=== PATIENT | female | born 1965 | race Caucasian/White ===

== ENCOUNTER 2018-04-04 19:13 | Observation (INO) ==
[2018-04-04] MEDS ORDERED: *HR* FentaNYL (PF) 100 MCG/2 ML VIAL IVP ONE ×2 (19:26→21:28)
[2018-04-04] MEDS ORDERED: *HR* Promethazine 25 MG/ML VIAL IVP ONE ×2 (19:26→21:28)
[2018-04-04] MEDS ORDERED: Isovue-370 500 ML INFUS..BTL IV ONE (19:29)
[2018-04-04] MEDS ORDERED: 0.9 % Sodium Chloride 1,000 ML IVC ONE (19:30)
[2018-04-04] MEDS ORDERED: Pantoprazole 80 MG in 0.9 % Sodium Chloride 50 ML IVPB ONE (19:35)
--- NOTE | 2018-04-04 19:35 | Emergency Department Note ---
Disposition Clinical Impression: Intractable nausea and vomiting Qualifiers: Vomiting type: unspecified Qualified Code(s): R11.2 - Nausea with vomiting, unspecified Gastritis Qualifiers: Gastritis type: unspecified gastritis Chronicity: acute Gastritis bleeding: without bleeding Qualified Code(s): K29.00 - Acute gastritis without bleeding Disposition: Admitted As Inpatient Condition: Fair Referrals: Ronel English CNP [Primary Care Provider] - Forms: ED Satisfaction Letter Time of Disposition: 23:00 Nausea/Vomiting/Diarrhea HPI - General Chief complaint: ED Nausea/Vomiting/Diarrhea Stated complaint: cant keep anything down after bowel resection Time Seen by Provider: 04/04/18 19:22 Source: patient, EMS Mode of arrival: EMS Limitations: no limitations Nursing Notes Reviewed: Yes Vital Signs Reviewed: Yes - History of Present Illness Pt Subjective Complaint: nausea, vomiting Onset (ago): hour(s) (Started this morning) Associated Abdominal Pain: Yes (Came on after the vomiting) If pain, Location of pain: other (Midline) Severity: severe Quality: cramping, stabbing Consistency: constant (Waxing and waning) Improves with: nothing Worsens with: eating Context: recent surgery/procedure (Patient had a hemicolectomy performed on March 17 due to diverticular disease. So we are postop day 18. She was seen here a week ago for the same thing. Labs were okay. Noncontrast CT was negative. She was transferred back to the [facility] where she had her surgery. Patient states that she was there for couple days and they did all kinds of testing and she ended up having a bowel movement and they sent her home. They did not think she had a bowel obstruction.) Associated symptoms: Reports: denies other symptoms - Related Data Home Medications Medication Instructions Recorded Confirmed Acetaminophen [Non-Aspirin] 325 mg PO Q4H PRN 04/04/18 04/04/18 Previous Rx's Medication Instructions Recorded Ondansetron ODT [Zofran ODT] 4 mg SL Q6HR PRN #8 tab.rapdis 03/28/18 Promethazine [Phenergan] 25 mg PO Q6HR PRN #16 tablet 03/28/18 Allergies Allergy/AdvReac Type Severity Reaction Status Date / Time sulfamethoxazole Allergy Hives Verified 10/05/17 10:59 [From Bactrim] trimethoprim [From Bactrim] Allergy Hives Verified 10/05/17 10:59 acetaminophen [From Percocet] AdvReac Gastrointestinal Verified 10/05/17 10:59 Upset hydrocodone [From Vicodin] AdvReac Gastrointestinal Verified 10/05/17 10:59 Upset Hydromorphone [From Dilaudid] AdvReac Gastrointestinal Verified 03/28/18 11:16 Upset Oxycodone [From Percocet] AdvReac Gastrointestinal Verified 10/05/17 10:59 Upset All systems ED: reviewed and negative except as stated. Constitutional: Reports: chills. Denies: fever ENT ED: Denies: ear pain, throat pain, congestion Cardiovascular: Denies: chest pain, palpitations Respiratory: Denies: cough, dyspnea Gastrointestinal: Reports: abdominal pain, nausea, vomiting. Denies: diarrhea, constipation Genitourinary: Denies: urgency, dysuria, frequency Integumentary: Denies: rash Past Medical History - Past Medical History Attestation: Yes The following information was validated with the patient. Source: patient, old records reviewed, nursing notes reviewed Medical history: Reports: hypertension, other Surgical history: Reports: no surgical history Psychiatric history: Reports: anxiety, depression [employer] history: Reports: bilateral tubal ligation - Social History Smoking Status: Current every day smoker Smokeless Tobacco Status: No Alcohol use: Reports: occasionally Drug use: Reports: marijuana Physical Exam - General General appearance: alert, other (Retching on arrival) - Head Head exam: atraumatic, normocephalic - Eye Eye exam: Present: normal appearance, PERRL, EOMI. Absent: scleral icterus, conjunctival injection - ENT ENT exam: normal oropharynx, mucous membranes dry, normal external ear exam - Neck Neck exam: Present: normal inspection, full ROM - Chest Chest inspection: Present: normal inspection, symmetric chest wall rise. Absent : tenderness - Respiratory Respiratory exam: Present: normal lung sounds bilaterally. Absent: respiratory distress, wheezes - Cardiovascular Cardiovascular exam: Present: regular rate, normal rhythm, normal heart sounds - Abdominal Exam Abdominal exam: Present: soft, tenderness (Located at each end of her midline incision. No incisional hernias identified.), normal bowel sounds. Absent: distention - Extremities Exam Extremities exam: Present: normal inspection. Absent: pedal edema - Neurological Exam Neurological exam: Present: alert, oriented X3 - Psychiatric Psychiatric exam: Present: normal affect, normal mood - Skin Skin exam: Present: warm, dry. Absent: rash Course Course Narrative: Patient presents with complaint of nausea and vomiting started this morning. She was not having any abdominal pain until after she started vomiting. She is here week ago for the same thing and workup was negative and symptoms resolved after she was transferred to clinic clinic. Physical exam does not seem consistent with bowel obstruction. I am suspicious this could be postoperative gastritis issue. However obstruction is the main concern as well as other postoperative complication like abscess or other infection. I will do a lab workup on the patient. I ordered a CT scan but this time we will do IV and oral contrast to get a better image. Patient was given pain medications and anti-emetics. I will also give her Protonix IV and IV fluids. Disposition will be based on diagnostic results and reevaluation. - Reevaluation(s) Reevaluation #1: After medications, the patient's left and she did not have any dry heaving or vomiting at all. Labs of come back and they are normal. Despite days of vomiting she is just got normal labs. We had to wake her up and keep encouraging her to drink the oral contrast. In the end she refused to drink it because it is making her nauseous. We talked about NG tube but she refuses NG tube as well. We explained to her that the study will not be as sensitive without appropriate contrast and after all that what her doctor sent her in to get. Nonetheless she refused so we are going get the study without oral contrast because we cannot force the patient to take the contrast or the NG tube. After all that she started dramatically dry heaving again. Nothing came up. I gave her more pain medicine and more anti-medics. They are to take her over to CT for the study with IV contrast only. Time: 21:30 Reevaluation #2: CAT scan shows no evidence of obstruction and no other acute intra-abdominal pathology. There is no abdominal wall pathology. No lower long issues. Coupling that with labs that are okay and the urinalysis that shows no signs of infection I think this really is a postoperative gastritis possibly curling ulcer issue. Talking with the patient and family the bedside they do not feel like they are going to do well if they go home. Therefore we will go ahead and admit the patient for intractable vomiting. I had to repeat medicate her a couple times in the emergency department so far so I think is reasonable for them to be admitted with IV medications and IV hydration. Time: 22:59 - Consultations Consultation #1: Dr. Cleary, hospitalist - I discussed the case with the hospitalist. He is accepted the patient for admission for intractable vomiting. Time: 22:59 Vital Signs Temperature 98.6 F 04/04/18 19:23 Pulse Rate 84 04/04/18 19:23 Respiratory Rate 20 04/04/18 19:23 Blood Pressure 151/96 04/04/18 19:23 O2 Sat by Pulse Oximetry 100 04/04/18 19:23 Temperature 98.6 F 04/04/18 19:23 Pulse Rate 77 04/04/18 21:48 Respiratory Rate 14 04/04/18 21:48 Blood Pressure 164/67 04/04/18 21:48 O2 Sat by Pulse Oximetry 98 04/04/18 21:48 Oxygen Delivery Oxygen Delivery Room Air Nausea/Vomiting/Diarrhea - Medical Records Medical records reviewed: Yes I reviewed the patient's medical records. - Lab Data Lab results reviewed: Yes I reviewed the patient's lab results. Result diagrams: 04/04/18 19:55 04/04/18 19:55 Lab Results 04/04/18 04/04/18 04/04/18 Range/Units 19:55 19:55 19:55 WBC 7.7 (4.3-11.1) K/mcL RBC 4.35 (3.82-4.97) M/mcL Hgb 13.1 (11.5-15.4) g/dL Hct 39.5 (35.3-44.9) % MCV 90.8 (83.0-100.0) fL MCH 30.1 (28.0-33.3) pg MCHC 33.2 (31.6-35.5) g/dL RDW 13.5 (11.5-14.5) % Plt Count 524 H (140-400) K/mcL MPV 9.1 L (9.4-12.4) fL Immature Gran % 0.4 (0-4) % Seg Neutrophils % 85.1 % Lymphocytes % 11.3 % Monocytes % 2.6 % Eosinophils % 0.1 % Basophils % 0.5 % Neutrophils # 6.6 (1.6-8.9) K/mcL Lymphocytes # 0.9 (0.6-4.6) K/mcL Monocytes # 0.2 (0.0-1.3) K/mcL Eosinophils # 0.0 (0.0-0.6) K/mcL Basophils # 0.0 (0.0-0.2) K/mcL Sodium 137 (136-145) mEq/L Potassium 3.7 (3.5-5.1) mEq/L Chloride 104 (98-107) mEq/L Carbon Dioxide 24 (23-29) mEq/L BUN 8 (6-20) mg/dL Creatinine 0.73 (0.60-1.20) mg/dL Est GFR ( Amer) > 60 (> 60) Est GFR (Non-Af Amer) > 60 (> 60) BUN/Creatinine Ratio 11 (6-26) Glucose 106 H (70-105) mg/dL Calculated Osmolality 283 (280-300) Lactic Acid 1.0 (0.5-2.2) mmol/L Calcium 9.9 (8.6-10.3) mg/dL Total Bilirubin 0.5 (0.3-1.0) mg/dL Direct Bilirubin 0.1 (0.0-0.2) mg/dL Indirect Bilirubin 0.4 (0.0-1.2) mg/dL AST 17 (13-39) Units/L ALT 20 (7-52) Units/L Alkaline Phosphatase 82 (34-104) Units/L Serum Total Protein 7.3 (6.4-8.9) g/dL Albumin 4.1 (3.5-5.7) g/dL Globulin 3.2 (2.4-3.5) g/dL Albumin/Globulin Ratio 1.3 (1.1-2.2) Lipase (11-82) Units/L Urine Color (Yellow) Urine Clarity (Clear) Urine pH (5.0-8.0) pH Units Ur Specific [place] (1.010-1.025) Urine Protein (Neg-Trace) mg/dL Urine Glucose (UA) (Normal) mg/dL Urine Ketones (Negative) mg/dL Urine Blood (Negative) Urine Nitrite (Negative) Urine Bilirubin (Negative) Urine Urobilinogen (Normal) mg/dL Ur Leukocyte Esterase (Negative) Urine Microscopic RBC (0-3) per hpf Urine Microscopic WBC (0-3) per hpf Ur Squamous Epith Cells (None-Few) per lpf Urine Bacteria (None-Few) per hpf Hyaline Casts (None-Few) per lpf Urine Mucus (Few) Ur Culture Indicated? (NO) 04/04/18 04/04/18 Range/Units 19:55 22:14 WBC (4.3-11.1) K/mcL RBC (3.82-4.97) M/mcL Hgb (11.5-15.4) g/dL Hct (35.3-44.9) % MCV (83.0-100.0) fL MCH (28.0-33.3) pg MCHC (31.6-35.5) g/dL RDW (11.5-14.5) % Plt Count (140-400) K/mcL MPV (9.4-12.4) fL Immature Gran % (0-4) % Seg Neutrophils % % Lymphocytes % % Monocytes % % Eosinophils % % Basophils % % Neutrophils # (1.6-8.9) K/mcL Lymphocytes # (0.6-4.6) K/mcL Monocytes # (0.0-1.3) K/mcL Eosinophils # (0.0-0.6) K/mcL Basophils # (0.0-0.2) K/mcL Sodium (136-145) mEq/L Potassium (3.5-5.1) mEq/L Chloride (98-107) mEq/L Carbon Dioxide (23-29) mEq/L BUN (6-20) mg/dL Creatinine (0.60-1.20) mg/dL Est GFR ( Amer) (> 60) Est GFR (Non-Af Amer) (> 60) BUN/Creatinine Ratio (6-26) Glucose (70-105) mg/dL Calculated Osmolality (280-300) Lactic Acid (0.5-2.2) mmol/L Calcium (8.6-10.3) mg/dL Total Bilirubin (0.3-1.0) mg/dL Direct Bilirubin (0.0-0.2) mg/dL Indirect Bilirubin (0.0-1.2) mg/dL AST (13-39) Units/L ALT (7-52) Units/L Alkaline Phosphatase (34-104) Units/L Serum Total Protein (6.4-8.9) g/dL Albumin (3.5-5.7) g/dL Globulin (2.4-3.5) g/dL Albumin/Globulin Ratio (1.1-2.2) Lipase 140 H (11-82) Units/L Urine Color Yellow (Yellow) Urine Clarity Slightly Cloudy A (Clear) Urine pH 8.5 H (5.0-8.0) pH Units Ur Specific [place] 1.020 (1.010-1.025) Urine Protein 30 H (Neg-Trace) mg/dL Urine Glucose (UA) Normal (Normal) mg/dL Urine Ketones 80 H (Negative) mg/dL Urine Blood Negative (Negative) Urine Nitrite Negative (Negative) Urine Bilirubin Small H (Negative) Urine Urobilinogen Normal (Normal) mg/dL Ur Leukocyte Esterase Negative (Negative) Urine Microscopic RBC 0-3 (0-3) per hpf Urine Microscopic WBC 0-3 (0-3) per hpf Ur Squamous Epith Cells Many H (None-Few) per lpf Urine Bacteria Moderate H (None-Few) per hpf Hyaline Casts Few (None-Few) per lpf Urine Mucus Many H (Few) Ur Culture Indicated? NO (NO) - Radiology Data Radiology results reviewed: Yes I reviewed the patient's radiology results.
[2018-04-04] MEDS ORDERED: Pantoprazole 40 MG VIAL IVP ONE ×4 (19:39→20:00)
[2018-04-04] MEDS ORDERED: 0.9 % Sodium Chloride Mini Bag 100 ML ONE (20:02)
[2018-04-04 20:03] LABS: Basophils % 0.5 %; Eosinophils % 0.1 %; Hematocrit 39.5 % (35.3-44.9); Hemoglobin 13.1 g/dL (11.5-15.4); Immature Granulocytes % 0.4 % (0-4); Lymphocytes # 0.9 K/mcL (0.6-4.6); Lymphocytes % 11.3 %; Mean Corpuscular HGB Conc 33.2 g/dL (31.6-35.5); Mean Corpuscular Hemoglobin 30.1 pg (28.0-33.3); Mean Corpuscular Volume 90.8 fL (83.0-100.0); Mean Platelet Volume 9.1 fL (9.4-12.4); Monocytes # 0.2 K/mcL (0.0-1.3); Monocytes % 2.6 %; Neutrophils # 6.6 K/mcL (1.6-8.9); Platelet Count 524 K/mcL (140-400); Red Blood Count 4.35 M/mcL (3.82-4.97); Red Cell Distribution Width 13.5 % (11.5-14.5); Segmented Neutrophils % 85.1 %
[2018-04-04 20:23] LABS: Alanine Aminotransferase 20 Units/L (7-52); Albumin 4.1 g/dL (3.5-5.7); Albumin/Globulin Ratio 1.3 (1.1-2.2); Alkaline Phosphatase 82 Units/L (34-104); Aspartate Amino Transferase 17 Units/L (13-39); BUN/Creatinine Ratio 11 (6-26); Bilirubin,Direct 0.1 mg/dL (0.0-0.2); Bilirubin,Indirect 0.4 mg/dL (0.0-1.2); Bilirubin,Total 0.5 mg/dL (0.3-1.0); Blood Urea Nitrogen 8 mg/dL (6-20); Calcium 9.9 mg/dL (8.6-10.3); Carbon Dioxide 24 mEq/L (23-29); Chloride 104 mEq/L (98-107); Globulin 3.2 g/dL (2.4-3.5); Glucose 106 mg/dL (70-105); Osmolality,Calculated 283 (280-300); Potassium 3.7 mEq/L (3.5-5.1); Sodium 137 mEq/L (136-145); Total Protein 7.3 g/dL (6.4-8.9); eGFR For African Americans > 60 (> 60); eGFR For Non-African Americans > 60 (> 60)
[2018-04-04 22:17] LABS: Bilirubin,Urine Small (Negative); Blood,Urine Negative (Negative); Clarity,Urine Slightly Cloudy (Clear); Color,Urine Yellow (Yellow); Glucose,Urine (UA) Normal (Normal); Ketones,Urine 80 mg/dL (Negative); Leukocyte Esterase,Urine Negative (Negative); Nitrite,Urine Negative (Negative); PH,Urine 8.5 pH Units (5.0-8.0); Protein,Urine 30 mg/dL (Neg-Trace); Urobilinogen,Urine Normal (Normal)
[2018-04-04 22:29] LABS: Bacteria,Urine Moderate per hpf (None-Few); Mucus,Urine Many (Few); Squamous Epithelial Cell,Urine Many per lpf (None-Few)
[2018-04-04 22:30] LABS: Hyaline Casts,Urine Few per lpf (None-Few); RBC,Urine 0-3 per hpf (0-3); WBC,Urine 0-3 per hpf (0-3)
[2018-04-05] MEDS ORDERED: Acetaminophen 325 MG TABLET PO PRN
[2018-04-05] MEDS ORDERED: 0.9 % Sodium Chloride 1,000 ML IVC SCH
[2018-04-05] MEDS ORDERED: Isovue-370 500 ML INFUS..BTL IV ONE
[2018-04-05] MEDS ORDERED: Naloxone 0.4 MG/ML INJ IVP PRN
[2018-04-05] MEDS ORDERED: *HR* Promethazine 25 MG/ML VIAL IVP PRN
[2018-04-05] MEDS: Ondansetron ODT 4 MG TAB.RAPDIS SL PRN ×2 (00:30→12:36)
[2018-04-05] MEDS: *HR* FentaNYL (PF) 100 MCG/2 ML VIAL IVP SCH ×3 (06:41→09:05)
[2018-04-05] MEDS ORDERED: traMADol 50 MG TABLET PO PRN (10:55)
--- NOTE | 2018-04-05 11:04 | Internal Med History&Physical ---
Date of Encounter: 04/05/18 Time of Encounter: 10:25 Assessment and Plan (1) Acute gastroenteritis Current visit: Yes Status: Acute She has been started on IV fluids. Antiemetics will be given as needed. Diet will be advanced as tolerated. Internal Medicine - H&P: HPI Chief complaint: Vomiting Admitted From: Emergency Dept Plans for Post Hospital Care: Home History of present illness: Ms. Stern is a 52 year old female who came to emergency room stating she had developed sensation of chills and had diaphoresis since awakening that morning. She then had multiple episodes of vomiting and decided to come to emergency room. She was evaluated and felt to have acute gastroenteritis. She was admitted to [facility] floor for ongoing care needs. She reports having approximately 18 inches of sigmoid colon resected at [facility] 02/14/2018 because of diverticulitis. Her postop course was unremarkable until she developed similar episodes of vomiting last week. She came to [facility] ER and was transported back to [facility]. She was treated and released from emergency room there and did well until similar symptoms recurred the morning of April 04. She denies known disorders of her liver gallbladder or exocrine pancreas. She denies nausea at the present time. She denies diarrhea. She reports slight pain in the suprapubic area midline. Past Med Surg Social Fam HX - Past Medical History Medical history: hypertension, other Psychiatric history: anxiety, depression - Past Surgical History Surgical History: colectomy - Social History Smoking Status: Current every day smoker Smokeless Tobacco Status: No Alcohol use: occasionally Drug use: marijuana Internal Medicine - H&P: Meds Ondansetron ODT [Zofran ODT] 4 mg SL Q6HR PRN #8 tab.rapdis 03/28/18 [Rx] Promethazine [Phenergan] 25 mg PO Q6HR PRN #16 tablet 03/28/18 [Rx] Acetaminophen [Non-Aspirin] 325 mg PO Q4H PRN 04/04/18 [History] 3 Allergy/AdvReac Type Severity Reaction Status Date / Time sulfamethoxazole Allergy Hives Verified 10/05/17 10:59 [From Bactrim] trimethoprim [From Bactrim] Allergy Hives Verified 10/05/17 10:59 acetaminophen [From Percocet] AdvReac Gastrointestinal Verified 10/05/17 10:59 Upset hydrocodone [From Vicodin] AdvReac Gastrointestinal Verified 10/05/17 10:59 Upset Hydromorphone [From Dilaudid] AdvReac Gastrointestinal Verified 03/28/18 11:16 Upset Oxycodone [From Percocet] AdvReac Gastrointestinal Verified 10/05/17 10:59 Upset All Systems PM: A 10-system review of systems was performed and is negative for pertinent findings except as documented above in the HPI. Review of systems: Gen.: Her weight is been stable the past few months Cardiovascular: She has history of hypertension but does not take medication at this time and blood pressure has remained stable off medication. She denies VT heart failure DVT or pulmonary embolus Respiratory: She has smoked since age 15 never exceeding 1 pack per day. She denies known chronic lung disease GI: As per history of present illness : She has had occasional UTIs but denies other disorders of her kidneys or bladder. She has had 2 left ovarian cysts removed and has had tubal ligation. Neurologic: She denies large distribution strokes or seizures. Endocrine: She has a thyroid nodule that is being monitored by her PCP. She denies diabetes or hyperlipidemia Hematology/oncology: She has had skin cancer resection but denies internal malignancies or anemia Psychiatric: She has anxiety and bipolar disorder. [place] skeletal: She denies arthritis gout or other bone joint or muscle disorders. - Constitutional Vitals: Temp Pulse Resp BP Pulse Ox 97.9 F 66 16 133/82 97 04/05/18 10:09 04/05/18 10:04/05/18 10:04/05/18 10:04/05/18 04:00 Exam: Gen.: She is a well-developed well-nourished female resting comfortably in bed who appears in no acute distress. HEENT: Head is atraumatic and normocephalic. Eyes: EOMI. There is no scleral icterus. Mouth: Mucosa is moist. Neck: Supple and nontender. There is no thyromegaly or adenopathy noted. Heart: Regular without murmurs gallops or ectopics Lungs: No wheezes or crackles are heard. Abdomen: Soft and nontender. There is a healing midline incision. Bowel sounds are present. There is mild tenderness to palpation in the lower midline abdominal area. Extremities: There is no cyanosis edema or clubbing noted. Dorsalis pedis and posttibial pulses are 2/2 bilaterally. Neurologic: Mental status: She is talkative and a good historian. Cranial nerves: Smile is symmetric. Forehead wrinkles bilaterally. Tongue protrudes midline. EOMI. Motor: There is no pronator drift. Cerebellar: Finger to nose is intact bilaterally. Skin: Warm and dry Internal Med - H&P Results - Labs CBC & Chem 7: 04/04/18 19:55 04/04/18 19:55
[2018-04-05] MEDS: 0.45 % Sodium Chloride w/KCl 20 MEQ/1,000 ML MLS IVC SCH (11:33)
[2018-04-06] MEDS: 0.45 % Sodium Chloride w/KCl 20 MEQ/1,000 ML MLS IVC SCH (01:04)
[2018-04-06 04:39] LABS: Basophils # 0.1 K/mcL (0.0-0.2); Basophils % 0.9 %; Eosinophils # 0.1 K/mcL (0.0-0.6); Eosinophils % 2.1 %; Immature Granulocytes % 0.4 % (0-4); Lymphocytes # 2.5 K/mcL (0.6-4.6); Lymphocytes % 37.3 %; Mean Corpuscular HGB Conc 32.4 g/dL (31.6-35.5); Mean Corpuscular Hemoglobin 30.1 pg (28.0-33.3); Mean Corpuscular Volume 92.9 fL (83.0-100.0); Mean Platelet Volume 9.7 fL (9.4-12.4); Monocytes # 0.3 K/mcL (0.0-1.3); Monocytes % 4.8 %; Neutrophils # 3.7 K/mcL (1.6-8.9); Platelet Count 384 K/mcL (140-400); Red Blood Count 3.66 M/mcL (3.82-4.97); Red Cell Distribution Width 13.4 % (11.5-14.5); Segmented Neutrophils % 54.5 %
[2018-04-06 05:00] LABS: BUN/Creatinine Ratio 15 (6-26); Blood Urea Nitrogen 10 mg/dL (6-20); Calcium 8.8 mg/dL (8.6-10.3); Carbon Dioxide 23 mEq/L (23-29); Chloride 105 mEq/L (98-107); Glucose 74 mg/dL (70-105); Lipase 111 Units/L (11-82); Magnesium 1.7 mg/dL (1.6-2.6); Osmolality,Calculated 278 (280-300); Phosphorous 3.4 mg/dL (2.7-4.5); Potassium 3.9 mEq/L (3.5-5.1); Sodium 135 mEq/L (136-145); eGFR For African Americans > 60 (> 60); eGFR For Non-African Americans > 60 (> 60)
[2018-04-06 07:42] VITALS: BP 123/74
[2018-04-06] MEDS: Ondansetron ODT 4 MG TAB.RAPDIS SL PRN (08:04)
--- NOTE | 2018-04-06 10:04 | Discharge Summary ---
Date of Encounter: 04/06/18 Time of Encounter: 09:55 - Discharge Diagnosis (1) Acute gastroenteritis Priority: Primary Status: Acute Hospital course: Ms. Stern is a 52 year old female who came to emergency room stating she had developed sensation of chills and had diaphoresis since awakening that morning. She then had multiple episodes of vomiting and decided to come to emergency room. She was evaluated and felt to have acute gastroenteritis. She was admitted to [facility] for ongoing care needs. Initial orders were written by the emergency room physician. I saw her on April 05 and performed a history and physical. She was started on IV fluids. Antiemetics were given as needed. She had no further vomiting the last 24 hours of hospitalization. She had adequate intake of food and fluids. She felt stable for discharge home on April 06. She will follow with her PCP Ronel English CNP within 1 week. - Time Spent with Patient Total time spent providing and/or coordinating discharge services: - Discharge Medications Home Medications: Ondansetron ODT [Zofran ODT] 4 mg SL Q6HR PRN #8 tab.rapdis 03/28/18 [Rx] Promethazine [Phenergan] 25 mg PO Q6HR PRN #16 tablet 03/28/18 [Rx] Acetaminophen [Non-Aspirin] 325 mg PO Q4H PRN 04/04/18 [History] Allergies/Adverse Reactions: 3 Allergy/AdvReac Type Severity Reaction Status Date / Time sulfamethoxazole Allergy Hives Verified 10/05/17 10:59 [From Bactrim] trimethoprim [From Bactrim] Allergy Hives Verified 10/05/17 10:59 acetaminophen [From Percocet] AdvReac Gastrointestinal Verified 10/05/17 10:59 Upset hydrocodone [From Vicodin] AdvReac Gastrointestinal Verified 10/05/17 10:59 Upset Hydromorphone [From Dilaudid] AdvReac Gastrointestinal Verified 03/28/18 11:16 Upset Oxycodone [From Percocet] AdvReac Gastrointestinal Verified 10/05/17 10:59 Upset Date of admission: 04/04/18 23:38 Primary care physician: Ronel English - Constitutional Vitals: Temp Pulse Resp BP Pulse Ox 98.3 F 60 14 123/74 98 04/06/18 07:40 04/06/18 07:40 04/06/18 07:40 04/06/18 07:40 04/06/18 07:40 - Patient Status Disposition: Home, Self-Care Condition: Fair - Discharge Instructions Follow Up With: Ronel English CNP [Primary Care Provider] - 1 week - Diet and Activity Activity: resume usual activities as tolerated Diet: advance to your usual diet
== END 2018-04-06 11:30 | disposition home or self-care (01) ==
LOC: EMEROOPIK 19:13 → INPPIK 19:13
PROVIDERS: ADMIT Internal Medicine; ATTEND Internal Medicine